=== PATIENT | male | born 1980 | race Caucasian/White ===

== ENCOUNTER 2016-08-04 12:04 | Emergency (ER) | payer BC ==
--- NOTE | 2016-08-04 13:19 | ERNOTE ---
Integumentary HPI - General Time Seen by Provider: 08/04/16 12:18 Source: patient, family - Immun/Allergies/Home Medications Immunizations: IMMUNIZATION HX Immunizations Up to Date Yes History of Influenza Vaccine No Allergies/Adverse Reactions: Allergies Allergy/AdvReac Type Severity Reaction Status Date / Time No Known Allergies Allergy Unverified 08/04/16 12:23 Home Medications: HOME MEDICATIONS Acetaminophen with Codeine [Tylenol with Codeine #3 Tablet] 1 each PO Q4H PRN # 24 tab 08/04/16 [Last Taken Unknown] Clindamycin HCl [Cleocin HCl] 300 mg PO TID #30 capsule 08/04/16 [Last Taken Unknown] Lactobacillus Combo No.10 [Probiotic] 1 each PO DAILY 08/04/16 [Last Taken Unknown] Mupirocin Calcium [Bactroban] 15 gm TP BID #15 cream..g. 08/04/16 [Last Taken Unknown] - History of Present Illness Narrative: Patient presents with 2 complaints. The first one was a recurrence of the poison jane on his arms that he was treated for several weeks ago. And is what appears to be an abscess on his left lateral distal thigh. There is considerable erythema in the area as well as swelling and pain. This area on the left lateral leg started several days ago and is getting worse. Location: Reports: upper extremity, lower extremity - the patient's rash on the upper extremities appears to be a recurrence of his poison jane. The area on the lower extremity appears to be an abscess with localized cellulitis. Quality: Reports: itching Severity: moderate Exposure: Reports: poison jane/oak Modifying Factors - (Improves): Reports: prednisone Associated Symptoms: Reports: denies symptoms Review of Systems - Review of Systems Constitutional: Present: See HPI EYE: Present: no symptoms reported ENT: Present: no symptoms reported Respiratory: Present: no symptoms reported Cardiology: Present: no symptoms reported Gastrointestinal/Abdominal: Present: no symptoms reported Genitourinary: Present: no symptoms reported Musculoskeletal: Present: no symptoms reported Skin: Present: See HPI Neurological: Present: no symptoms reported Endocrine: Present: no symptoms reported Hematologic/Lymphatic: Present: no symptoms reported Psych: Present: no symptoms reported - Patient's Past Medical History Patient History - Medical: No pertinent hx Patient History - Cardiac/Respiratory: No pertinent hx Patient History - Cancer: No Hx of Cancer Patient History - Surgical Procedures: No surgical history Patient History - Other: None - Social History Abuse History: No History of abuse Psych History: No pertinent hx Smoking Status: Never smoker Alcohol Use: none Drug Use: none - Immunizations Immunizations Up to Date: Yes History of Influenza Vaccine: No Physical Exam - Physical Exam General Appearance: Present: wd/wn, alert, mild distress Eye Exam: Normal inspection: bilateral, PERRL: bilateral Ears, Nose, Throat: Present: normal ENT inspection, H, normal pharynx Neck: Present: normal inspection, nontender Respiratory: Present: no respiratory distress, normal breath sounds, no accessory muscle use, chest nontender, lungs clear Cardiovascular/Chest: Present: regular rate, rhythm, no murmur, normal peripheral pulses Gastrointestinal/Abdominal: Present: normal bowel sounds, nontender, nondistended, soft, no organomegaly Rectal Exam: Present: deferred Back Exam: Present: normal inspection, normal range of motion Extremity Exam: Present: normal inspection, non-tender, no edema, normal range of motion Neurological Exam: Present: alert, oriented, normal mood/affect Skin Exam: Present: other - patient has urticarial rash on the upper extremities. Patient also has an abscess on the left lower extremity with localized cellulitis and edema. Lymphatic Exam: Present: no adenopathy ED Progress - Vital Signs Patient's Vital Signs:: I have reviewed the patient's vital signs. Vital Signs: Vital Signs 08/04/16 12:14 Temperature 37.1 C Pulse Rate 98 Respiratory 120 H Rate Blood Pressure 120/68 O2 Sat by Pulse 98 Oximetry - Progress/Reassessment Chief Complaint: Cellulitis Procedures Left Upper Lateral Thigh Anesthesia: 1% Lidocaine I & D Prep: betadine prep Blade Size: 11 Findings and Actions: purulent drainage small, probed/breakup loculation, packed with guaze, cultures obtained Complications: Pt mike procedure well Plan - Plan Plan: The patient was given instructions to make sure that he washed all the tools that he was using as well as replacing the gloves and washing clothes that he was wearing from his previous exposure to poison jane. He was also given new antibiotics, pain medicine and topical antibiotics that he can place over the surgical wound on the left thigh. 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 Departure Clinical Impression: Poison jane dermatitis, Abscess - Departure Disposition: Home self-care Condition: Good Instructions: Poison Jane Dermatitis, [id number], Incision and Drainage, Care After Prescriptions: Acetaminophen with Codeine [Tylenol with Codeine #3 Tablet] 1 each PO Q4H PRN # 24 tab PRN Reason: Moderate Pain Clindamycin HCl [Cleocin HCl] 300 mg PO TID #30 capsule Mupirocin Calcium [Bactroban] 15 gm TP BID #15 cream..g.
[2016-08-04 13:49] VITALS: BP 122/72
== END 2016-08-04 13:49 | disposition home or self-care (01) ==
LOC: ER 12:04
PROC: 0H9JXZZ Drainage of Left Upper Leg Skin, External Approach (ICD-10-PCS; principal; 2016-08-04)
DX: L23.7 Allergic contact dermatitis due to plants, except food (principal)